=== PATIENT | female | born 1995 | race Caucasian/White ===

== ENCOUNTER 2022-01-06 07:29 | Inpatient (IN) ==
[2022-01-06] MEDS ORDERED: OXYTOCIN 30 UNITS/500 ML BAG IV PRN ×2 (07:46)
[2022-01-06 08:07] LABS: Hematocrit (blood only) 35.4 % (37-47); Hemoglobin 11.6 g/dL (12.0-16.0); Mean Corpuscular Hemoglobin 27.2 pg (25-34); Mean Corpuscular Hgb Conc 32.8 g/dL (32-36); Mean Corpuscular Volume 83.1 fL (80-100); Mean Platelet Volume 9.2 fL (7.4-10.4); Platelet Count 310 K/uL (130-400); RDW Coefficient of Variation 14.8 % (11.5-14.5); RDW Standard Deviation 44.7 fL (36.4-46.3); Red Blood Count 4.26 M/uL (4.2-5.4); White Blood Count 13.77 K/uL (4.8-10.8)
[2022-01-06] MEDS ORDERED: NIFEdipine EXTENDED REL 30 MG TABCR PO SCH (09:00)
[2022-01-06] MEDS: LACTATED RINGER'S 1,000 ML IV PRN ×3 (09:42→22:00)
[2022-01-06 11:02] LABS: Alanine Aminotransferase 10 U/L (7-52); Albumin Level 3.3 gm/dl (3.4-5.0); Alkaline Phosphatase 67 U/L (34-104); Anion Gap 10 (3-11); Aspartate Aminotransferase 12 U/L (13-39); Bilirubin,Total 0.5 mg/dl (0.2-1.0); Blood Urea Nitrogen 11 mg/dl (6-23); Carbon Dioxide 20 mmol/L (21-32); Chloride 105 mmol/L (98-107); Creatinine Clr Calc Pharmacy 284.6 ml/min; Est GFR (African American) > 150.0 ml/min; Est GFR (Non-African American) 138.3 ml/min; Globulin 3.3 gm/dl (2.5-4.0); Glucose 78 mg/dl (70-99(Fasting)); Potassium 4.1 mmol/L (3.5-5.1); Sodium 135 mmol/L (136-145); Total Protein 6.6 gm/dl (6.0-8.3)
[2022-01-06 11:16] LABS: Creatinine Urine Random 252.2 mg/dl; Protein Creatinine Ratio Urine 0.2 (0-0.2); Total Protein Urine Random 57.3 mg/dl (0-11.9)
--- NOTE | 2022-01-06 13:20 | Labor Progress Brief Note ---
Date of Service January 06, 2022 Subjective pt feels some contractions but since the chamorro fell out felt better as far as cramps. denies marcum, visual change. Assessment & Plan (1) Chronic hypertension affecting : (2) Insulin controlled gestational diabetes mellitus (GDM) during : (3) resulting from in-vitro fertilization: Plan: will see how arom helps labor pattern, c/w pit. fhts categ 1. last bp with cuff malpositioned. now improved to her baseline 150s/70s. Admission and Anticipated Discharge Date Admission Date: January 06, 2022 Physical Exam Constitutional: recent bp elevated. Genitourinary: Manual OB Exam: + cervical dilation 3 cm, + cervical effacement 50%, + station -2 and + amniotic fluid (AROM ) clear OB Exam Monitor Tracing: + external FHT monitor used, + external uterine monitor used (q4 ), + category I and + normal FHT variability Results & Data ([facility]) Vital Signs (Past 12 Hours) Vital Signs Temp Pulse Resp BP 01/06/22 13:15 101 H 176/114 H 01/06/22 13:00 82 173/105 H 01/06/22 12:45 107 H 154/105 H 01/06/22 12:30 92 H 139/76 01/06/22 12:00 92 H 158/77 H 01/06/22 11:45 100 H 143/67 H 01/06/22 11:30 90 150/61 H 01/06/22 11:15 91 H 155/71 H 01/06/22 11:00 102 H 154/76 H 01/06/22 10:45 94 H 147/76 H 01/06/22 10:30 92 H 137/75 01/06/22 10:15 91 H 168/75 H 01/06/22 10:00 101 H 167/99 H 01/06/22 09:44 95 H 163/93 H 01/06/22 08:00 103 H 150/85 H 01/06/22 07:51 98.4 F 103 H 18 150/85 H Coding Level of Care Code None Diagnoses Chronic hypertension affecting O10.919 Insulin controlled gestational diabetes mellitus (GDM) during O24.414 resulting from in-vitro fertilization O09.819
[2022-01-06] MEDS ORDERED: BUTORPHANOL TARTRATE 1 MG/ML VIAL IV STA (15:07)
[2022-01-06] MEDS ORDERED: BUTORPHANOL TARTRATE 1 MG/ML VIAL IV PRN (17:52)
--- NOTE | 2022-01-06 18:34 | Labor Progress Brief Note ---
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 Cat 1 tracing. BGS normal (2) Insulin controlled gestational diabetes mellitus (GDM) during : (3) Supervision of normal intrauterine in primigravida: Admission and Anticipated Discharge Date Admission Date: January 06, 2022 Physical Exam Genitourinary: Manual OB Exam: + cervical dilation 3 cm, + cervical effacement 50%, + station -2 and + amniotic fluid clear OB Exam Monitor Tracing: + exte rnal FHT monitor used, + external uterine monitor used, + category I and + normal FHT variability; no early decelerations present, no late decelerations present and no variable decelerations IUPC and FSE placed Results & Data ([facility]) Vital Signs (Past 12 Hours) Vital Signs Temp Pulse Resp BP 01/06/22 17:56 36.7 C 01/06/22 16:37 73 134/62 01/06/22 15:37 75 134/79 01/06/22 15:00 36.7 C 01/06/22 14:38 71 144/79 H 01/06/22 13:30 90 164/79 H 01/06/22 13:17 94 H 158/74 H 01/06/22 13:15 101 H 176/114 H 01/06/22 13:00 36.8 C 82 173/105 H 01/06/22 12:45 107 H 154/105 H 01/06/22 12:30 92 H 139/76 01/06/22 12:00 36.8 C 92 H 158/77 H 01/06/22 11:45 100 H 143/67 H 01/06/22 11:30 90 150/61 H 01/06/22 11:15 91 H 155/71 H 01/06/22 11:00 102 H 154/76 H 01/06/22 10:45 94 H 147/76 H 01/06/22 10:30 92 H 137/75 01/06/22 10:15 91 H 168/75 H 01/06/22 10:00 101 H 167/99 H 01/06/22 09:44 95 H 163/93 H 01/06/22 08:00 103 H 150/85 H 01/06/22 07:51 36.9 C 103 H 18 150/85 H Coding Level of Care Code None Diagnoses Chronic hypertension affecting O10.919 Insulin controlled gestational diabetes mellitus (GDM) during O24.414 Supervision of normal intrauterine in primigravida Z34.00
--- NOTE | 2022-01-06 19:00 | History & Physical Report ---
Date of Service January 06, 2022 Assessment & Plan (1) Chronic hypertension affecting : Plan: kinza is a 26-year-old who presents for induction of labor for chronic hypertension and noted complications. 1. Fetus: Reactive NST 2. Labor: Cruz cath placed, Pitocin per protocol 3. Vital: Elevated without symptoms. PIH labs pending 4. cHTN: Continue home meds 5. A2gDM: Q1-2 hr BG, Last growth US showed EFW 73%, AC 63% (2) Insulin controlled gestational diabetes mellitus (GDM) during : (3) Morbid obesity: (4) resulting from in-vitro fertilization: Admission and Anticipated Discharge Date Admission Date: January 06, 2022 History of Present Illness Primary Care Provider: Anatoliy Bhat MD kinza is a 26-year-old G1 at 38 weeks 2 days gestational age presents for induction of labor secondary to chronic hypertension, insulin-dependent gestati onal diabetes, obesity with BMI greater than 40, marginal cord insertion, mild polyhydramnios and IVF . Please see OB office visits for additional details. Patient is reporting good movement denying any labor symptoms. OB Labs: OB Labs: Blood Type A Positive 06/24/21 Antibody Screen NEGATIVE 06/24/21 Hemoglobin 11.6 g/dL (12.0-16.0) L 11/05/21 Hematocrit 36.0 % (37-47) L 11/05/21 Mean Corpuscular Volume 82.1 fL (80-100) 06/24/21 Platelet Count 379 K/uL (130-400) 10/03/21 Rubella IgG Antibody Non Immune (Immune) L 06/24/21 Rapid Plasma Reagin Nonreactive (Nonreactive) 06/24/21 Hepatitis B Surface Antigen Neg (Neg) 06/24/21 HIV (1&2) Ab and P24 Ag, 4th Gener Neg (Neg) 06/24/21 Glucose 1 Hour 50 gm Load 146 mg/dl (70-130) H 07/29/21 OB Optional Labs: Chlamydia trachomatis RNA NOT DETECTED (NOT DETECTED) 06/24/21 Neisseria gonorrhoeae RNA NOT DETECTED (NOT DETECTED) 06/24/21 Thyroid Stimulating Hormone (TSH) 1.110 uIu/ml (0.300-4.500) 04/18/21 Labs Reviewed: low risk panorama carrier CF--fob neg neg sma declined afp Allergies Allergy/AdvReac Type Severity Reaction Status Date / Time No Known Allergies Allergy Verified 01/02/22 09:56 Home Medications Medication Instructions Recorded Confirmed Type cetirizine 10 mg tablet (Zyrtec) 10 mg PO DAILY 05/27/19 01/06/22 History montelukast 10 mg tablet 10 mg PO QPM 05/27/19 01/06/22 History (Singulair) nifedipine 30 mg tablet,extended 30 mg PO DAILY 06/18/21 01/06/22 History release 24 hr (Procardia XL) aspirin 81 mg tablet,delayed 81 mg PO DAILY 07/17/21 01/06/22 History release (Adult Low Dose Aspirin) acetone (urine) test (Ketone Urine #50 ea 08/14/21 01/02/22 Rx Test) blood sugar diagnostic (ShopTextTouch #150 ea 08/14/21 01/02/22 Rx Verio test strips) blood-glucose meter (ShopTextTouch #1 ea 08/14/21 01/02/22 Rx Verio Flex meter) lancets 33 gauge (OneTouch Delica #150 ea 08/14/21 01/02/22 Rx Plus Lancet) insulin syringe-needle U-100 0.5 #50 ea 12/05/21 01/02/22 Rx mL 31 gauge x 5/16" (BD Insulin Syringe Ultra-Fine) insulin NPH isoph U-100 human 100 50 unit SUBCUT QPM 12/23/21 01/06/22 History unit/mL subcutaneous suspension (Novolin N NPH U-100 Insulin isophane) albuterol sulfate 90 mcg/actuation INHALATION PRN 01/02/22 History aerosol inhaler prenat.vits,son,[id number] 1 tab PO DAILY 01/02/22 01/06/22 History Patient History Medical History (Updated 01/06/22 @ 13:18 by Heike Saenz MD, FACOG) Chronic hypertension affecting Hypertension Insulin controlled gestational diabetes mellitus (GDM) during Morbid obesity Pelvic pain Primary ovarian insufficiency Surgical History H/O sinus surgery History of laparoscopy S/P cholecystectomy [place] teeth extracted Family History Grandfather (Paternal) Prostate cancer Other Asthma Cancer Diabetes Heart disease Hypertension Denies family history of Ovarian cancer Breast cancer Colorectal cancer Social History Smoking Status: Never smoker Second Hand Exposure: No; Do You Dip or Chew Tobacco: No; Hx Alcohol Use: No Hx Substance Use: No Preferred Language: Yemeni Communication Ability: Effective Knife Setter Grinder Machine Required: No Beliefs That Will Affect Care: Orthodox marital status: marital status details: akira (26) [phone] Current Living Situation: Spouse Current Living Situation Comment: lives with spouse, 1 dog, 1 cat, spouse to change litter. 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 @ [employer] Feels Safe at Home: Yes Safety Concerns: Feels Safe At This Time Physical Exam Genitourinary: normal external appearance Manual OB Exam: + cervical dilation fingertip, + cervical effacement 10% and + station high OB Exam Monitor Tracing: + external FHT monitor used, + external uterine monitor used, + category I and + normal FHT variability; no early decelerations present, no late decelerations present and no variable decelerations Results & Data ([facility]) Vital Signs (Past 12 Hours) Vital Signs Temp Pulse Resp BP 01/06/22 18:38 72 130/69 01/06/22 17:56 36.7 C 01/06/22 16:37 73 134/62 01/06/22 15:37 75 134/79 01/06/22 15:00 36.7 C 01/06/22 14:38 71 144/79 H 01/06/22 13:30 90 164/79 H 01/06/22 13:17 94 H 158/74 H 01/06/22 13:15 101 H 176/114 H 01/06/22 13:00 36.8 C 82 173/105 H 01/06/22 12:45 107 H 154/105 H 01/06/22 12:30 92 H 139/76 01/06/22 12:00 36.8 C 92 H 158/77 H 01/06/22 11:45 100 H 143/67 H 01/06/22 11:30 90 150/61 H 01/06/22 11:15 91 H 155/71 H 01/06/22 11:00 102 H 154/76 H 01/06/22 10:45 94 H 147/76 H 01/06/22 10:30 92 H 137/75 01/06/22 10:15 91 H 168/75 H 01/06/22 10:00 101 H 167/99 H 01/06/22 09:44 95 H 163/93 H 01/06/22 08:00 103 H 150/85 H 01/06/22 07:51 36.9 C 103 H 18 150/85 H Coding Level of Care Code None Diagnoses Chronic hypertension affecting O10.919 Insulin controlled gestational diabetes mellitus (GDM) during O24.414 Morbid obesity E66.01 resulting from in-vitro fertilization O09.819
[2022-01-06] MEDS ORDERED: ePHEDrine sulfate 50 MG/ML AMP ONE (19:31)
[2022-01-06] MEDS ORDERED: BUPIVACAINE 0.25% 30 ML VIAL ONE (19:32)
[2022-01-06] MEDS ORDERED: fentaNYL citrate 100 MCG/2 ML VIAL ONE (19:32)
[2022-01-06] MEDS ORDERED: SODIUM CHLORIDE 0.9% INJ 10 ML VIAL ONE (19:32)
[2022-01-06] MEDS ORDERED: fentaNYL 2MCG/ML ROPIVACAINE 1.25MG/ML 100 ML BAG EPI ONE (19:33)
[2022-01-06] MEDS ORDERED: ePHEDrine sulfate 50 MG/ML AMP IV PRN (19:48)
[2022-01-06] MEDS ORDERED: ONDANSETRON INJ 2 MG/ML 2 ML VIAL IV PRN (19:48)
[2022-01-06] MEDS ORDERED: fentaNYL 2MCG/ML ROPIVACAINE 1.25MG/ML 100 ML BAG EPI PRN (19:48)
[2022-01-06] MEDS ORDERED: NALBUPHINE HCL INJ 10 MG/ML AMP IV PRN (19:48)
[2022-01-06] MEDS ORDERED: NALOXONE HCL 0.4 MG/1 ML VIAL/CARP IV PRN (19:48)
[2022-01-06] MEDS ORDERED: NALOXONE HCL 1 MG in SODIUM CHLORIDE 0.9% 1000ML 1,000 ML IV PRN (19:48)
[2022-01-06] MEDS ORDERED: diphenhydrAMINE 50 MG/ML VIAL IV PRN (19:48)
--- NOTE | 2022-01-06 19:53 | Anesthesiology Consultation ---
Date of Service January 06, 2022 Assessment & Plan Chart Review Chart Review: Patient NOT seen in Pre Admission Testing and Acceptable Risk for Labor Epidural Consults Requested none ASA ASA3 Proposed Anesthesia Anesthesia Type: Labor Epidural and CSE Risk / Benefits Reviewed With: PT / POA / Parent / Guardian, Accepts Plan and Informed Consent Obtained History Height/Weight Height: 5 ft 8 in Weight: 138.799 kg Allergies Allergy/AdvReac Type Severity Reaction Status Date / Time No Known Allergies Allergy Verified 01/02/22 09:56 Medications Home Medications Medication Instructions Recorded Confirmed Last Taken cetirizine 10 mg tablet (Zyrtec) 10 mg PO DAILY 05/27/19 01/06/22 01/06/22 06:00 montelukast 10 mg tablet 10 mg PO QPM 05/27/19 01/06/22 01/06/22 06:00 (Singulair) nifedipine 30 mg tablet,extended 30 mg PO DAILY 06/18/21 01/06/22 01/05/22 22:00 release 24 hr (Procardia XL) aspirin 81 mg tablet,delayed 81 mg PO DAILY 07/17/21 01/06/22 01/06/22 06:00 release (Adult Low Dose Aspirin) acetone (urine) test (Ketone Urine #50 ea 08/14/21 01/02/22 Unknown Test) blood sugar diagnostic (OneTouch #150 ea 08/14/21 01/02/22 Unknown Verio test strips) blood-glucose meter (OneTouch #1 ea 08/14/21 01/02/22 Unknown Verio Flex meter) lancets 33 gauge (OneTouch Delica #150 ea 08/14/21 01/02/22 Unknown Plus Lancet) insulin syringe-needle U-100 0.5 #50 ea 12/05/21 01/02/22 Unknown mL 31 gauge x 5/16" (BD Insulin Syringe Ultra-Fine) insulin NPH isoph U-100 human 100 50 unit SUBCUT QPM 12/23/21 01/06/22 01/05/22 23:00 unit/mL subcutaneous suspension (Novolin N NPH U-100 Insulin isophane) albuterol sulfate 90 mcg/actuation INHALATION PRN 01/02/22 Unknown aerosol inhaler prenat.vits,son,[id number] 1 tab PO DAILY 01/02/22 01/06/22 01/06/22 06:00 Active Medications Generic Name Dose Route Start Last Admin Trade Name Freq PRN Reason Stop Dose Admin Butorphanol Tartrate 1 mg 01/06/22 17:52 01/06/22 18:02 Butorphanol Tartrate 1 Mg/Ml Vial IV 02/05/22 17:51 1 mg Q2H PRN Administration Pain Oxytocin 30 units in 500 mls @ 14 mls/hr 01/06/22 07:46 01/06/22 15:31 Pitocin IV 01/08/22 07:45 0.84 units/hr .Q24H PRN 14 mls/hr Labor Induction/Augmentation Titration Protocol 0.84 UNITS/HR Lactated Ringer's 1,000 mls @ 125 mls/hr 01/06/22 07:46 01/06/22 17:57 Lr IV 01/08/22 07:45 125 mls/hr .Q8H PRN Administration L&D Protocol Protocol NPO Date Last Intake of Fluids: 01/06/22 Time Last Intake of Fluids: 19:00 Date Last Intake of Solids: 01/06/22 Time Last Intake of Solids: 06:30 Past Medical History Medical History Chronic hypertension affecting Hypertension Insulin controlled gestational diabetes mellitus (GDM) during Morbid obesity Pelvic pain Primary ovarian insufficiency Exercise / Class Metabolic Activity II 4-5 Yardwork/Stairs/Walk up hill Past Family History Family History Grandfather (Paternal) Prostate cancer Other Asthma Cancer Diabetes Heart disease Hypertension Denies family history of Ovarian cancer Breast cancer Colorectal cancer Past Surgical History Surgical History H/O sinus surgery History of laparoscopy S/P cholecystectomy [place] teeth extracted Past Anesthesia History No Hx of Anesthesia Complications and No Family Hx of Anesthesia Complications Social History Smoking Status: Never smoker Do You Dip or Chew Tobacco: No Hx Alcohol Use: No Hx Substance Use: No Review of Systems no chest pain or sob Physical Exam Vital Signs Last Vital Signs Temp 36.7 C 01/06/22 19:14 Pulse 90 01/06/22 19:37 Resp 18 01/06/22 19:14 BP 183/103 H 01/06/22 19:37 ENMT Mouth: no TMJ abnormality Thyromental Distance: > or= 3.5 Finger Breadths Mallampati Class: II Neck normal visual inspection Respiratory normal respiratory effort Auscultation: lungs clear to auscultation bilaterally Cardiovascular Rate/Rhythm: regular rate and regular rhythm Musculoskeletal Spine: normal cervical ROM Neurologic moves all extremities Psychiatric Orientation: alert and oriented x 3 Testing Laboratory Results 01/06/22 07:54 01/06/22 10:16 Blood Type A Positive 01/06/22 07:54 Antibody Screen NEGATIVE 01/06/22 07:54 01/06/22 01/06/22 01/06/22 19:31 18:33 16:32 POC Glucose 79 93 77 01/06/22 01/06/22 01/06/22 15:29 14:01 13:13 POC Glucose 82 73 81 01/06/22 01/06/22 01/06/22 12:02 11:04 10:10 POC Glucose 86 83 88 01/06/22 08:57 POC Glucose 108 H
[2022-01-06] MEDS: NIFEdipine EXTENDED REL 30 MG TABCR PO SCH ×2 (20:44→20:45)
--- NOTE | 2022-01-06 22:15 | Labor Progress Brief Note ---
Date of Service January 06, 2022 Subjective Reason For Note: Routine Evaluation Assessment & Plan (1) Chronic hypertension affecting : Plan: kinza is a 26-year-old who presents for induction of labor for chronic hypertension and noted complications. 1. Fetus: Cat 1 2. Labor: Minimal progression. Adequate contractions per IUPC. s/p Cruz cath, Pitocin per protocol 3. Vital: BPs elevated. denies PIH symptoms. PIH labs normal 4. cHTN: Continue home meds 5. A2gDM: Q1-2 hr BG, Last growth US showed EFW 73%, AC 63% (2) Insulin controlled gestational diabetes mellitus (GDM) during : (3) Morbid obesity: (4) resulting from in-vitro fertilization: Admission and Anticipated Discharge Date Admission Date: January 06, 2022 Physical Exam Genitourinary: Manual OB Exam: + cervical dilation 4 cm, + cervical effacement 50% and + station -2 OB Exam Monitor Tracing: + external FHT monitor used, + external uterine monitor used, + category I and + normal FHT variability Results & Data ([facility]) Vital Signs (Past 12 Hours) Vital Signs Temp Pulse Resp BP Pulse Ox 01/06/22 22:06 96 H 98 01/06/22 22:01 88 96 01/06/22 21:56 80 97 01/06/22 21:51 80 96 01/06/22 21:46 84 97 01/06/22 21:44 81 116/59 L 01/06/22 21:41 81 97 01/06/22 21:36 95 H 97 01/06/22 21:31 74 97 01/06/22 21:30 90 120/72 01/06/22 21:26 84 97 01/06/22 21:21 77 97 01/06/22 21:16 83 98 01/06/22 21:15 78 120/59 L 01/06/22 21:11 82 98 01/06/22 21:06 79 98 01/06/22 21:01 75 98 01/06/22 21:00 81 126/58 L 01/06/22 20:56 79 98 01/06/22 20:53 36.7 C 01/06/22 20:51 82 97 01/06/22 20:46 78 97 01/06/22 20:45 96 H 110/55 L 01/06/22 20:41 84 96 01/06/22 20:36 81 95 01/06/22 20:35 83 93 01/06/22 20:31 82 95 01/06/22 20:29 85 105/52 L 01/06/22 20:26 71 95 01/06/22 20:24 82 93 01/06/22 20:21 97 H 96 01/06/22 20:16 117 H 97 01/06/22 20:13 117 H 138/60 01/06/22 20:11 113 H 146/76 H 97 01/06/22 20:09 110 H 144/77 H 01/06/22 20:07 110 H 142/87 H 01/06/22 20:06 121 H 98 01/06/22 20:01 102 H 98 01/06/22 19:56 86 98 01/06/22 19:51 91 H 96 01/06/22 19:37 90 183/103 H 01/06/22 19:14 36.7 C 18 01/06/22 19:05 86 167/93 H 01/06/22 18:38 72 130/69 01/06/22 17:56 36.7 C 01/06/22 16:37 73 134/62 01/06/22 15:37 75 134/79 01/06/22 15:00 36.7 C 01/06/22 14:38 71 144/79 H 01/06/22 13:30 90 164/79 H 01/06/22 13:17 94 H 158/74 H 01/06/22 13:15 101 H 176/114 H 01/06/22 13:00 36.8 C 82 173/105 H 01/06/22 12:45 107 H 154/105 H 01/06/22 12:30 92 H 139/76 01/06/22 12:00 36.8 C 92 H 158/77 H 01/06/22 11:45 100 H 143/67 H 01/06/22 11:30 90 150/61 H 01/06/22 11:15 91 H 155/71 H 01/06/22 11:00 102 H 154/76 H 01/06/22 10:45 94 H 147/76 H 01/06/22 10:30 92 H 137/75 01/06/22 10:15 91 H 168/75 H Coding Level of Care Code None Diagnoses Chronic hypertension affecting O10.919 Insulin controlled gestational diabetes mellitus (GDM) during O24.414 Morbid obesity E66.01 resulting from in-vitro fertilization O09.819
--- NOTE | 2022-01-07 02:08 | Labor Progress Brief Note ---
Date of Service January 07, 2022 Subjective Reason For Note: Routine Evaluation Assessment & Plan (1) Chronic hypertension affecting : Plan: kinza is a 26-year-old who presents for induction of labor for chronic hypertension and noted complications. 1. Fetus: Cat 1 2. Labor: Definite increased effacement and lower station. Adequate contractions per IUPC. s/p Cruz cath, Pitocin per protocol 3. Vital: BPs elevated. denies PIH symptoms. PIH labs normal 4. cHTN: Continue home meds 5. A2gDM: Normal BG, Last growth US showed EFW 73%, AC 63% (2) Insulin controlled gestational diabetes mellitus (GDM) during : (3) Morbid obesity: (4) resulting from in-vitro fertilization: Admission and Anticipated Discharge Date Admission Date: January 06, 2022 Physical Exam Genitourinary: Manual OB Exam: + cervical dilation 4 cm, + cervical effacement 70% and + station -1 OB Exam Monitor Tracing: + scalp electrode used, + intra-uterine pressure catheter used, + category I and + normal FHT variability; no variable decelerations Results & Data ([facility]) Vital Signs (Past 12 Hours) Vital Signs Temp Pulse Resp BP Pulse Ox 01/07/22 02:01 113 H 96 01/07/22 02:00 123 H 137/78 01/07/22 01:56 88 94 01/07/22 01:54 86 94 01/07/22 01:51 87 95 01/07/22 01:48 88 94 01/07/22 01:46 90 95 01/07/22 01:45 91 H 125/59 L 01/07/22 01:41 88 95 01/07/22 01:36 82 94 01/07/22 01:31 98 H 95 01/07/22 01:30 94 H 141/79 H 01/07/22 01:27 91 H 94 01/07/22 01:26 90 95 01/07/22 01:21 82 95 01/07/22 01:20 89 94 01/07/22 01:16 83 95 01/07/22 01:14 93 H 139/82 94 01/07/22 01:11 90 95 01/07/22 01:09 89 94 01/07/22 01:06 94 H 94 01/07/22 01:04 96 H 94 01/07/22 01:01 96 H 94 01/07/22 00:59 93 H 139/77 01/07/22 00:58 95 H 94 01/07/22 00:56 88 95 01/07/22 00:53 95 H 94 01/07/22 00:51 93 H 95 01/07/22 00:46 102 H 95 01/07/22 00:44 98 H 157/81 H 01/07/22 00:41 104 H 95 01/07/22 00:39 101 H 93 01/07/22 00:36 105 H 95 01/07/22 00:32 37.3 C 16 01/07/22 00:31 94 H 96 01/07/22 00:30 91 H 144/83 H 01/07/22 00:29 94 H 93 01/07/22 00:26 86 94 01/07/22 00:21 89 94 01/07/22 00:20 88 94 01/07/22 00:16 86 94 01/07/22 00:14 91 H 141/82 H 94 01/07/22 00:11 82 94 01/07/22 00:06 88 94 01/07/22 00:01 88 94 01/06/22 23:59 91 H 139/84 01/06/22 23:56 89 94 01/06/22 23:51 80 95 01/06/22 23:46 84 95 01/06/22 23:45 91 H 140/86 93 01/06/22 23:41 85 95 01/06/22 23:39 86 94 01/06/22 23:36 94 H 96 01/06/22 23:33 18 01/06/22 23:32 88 94 01/06/22 23:31 84 95 01/06/22 23:28 85 124/64 01/06/22 23:26 84 94 01/06/22 23:21 81 96 01/06/22 23:16 79 95 01/06/22 23:14 79 128/65 01/06/22 23:11 82 95 01/06/22 23:10 85 94 01/06/22 23:06 84 95 01/06/22 23:01 75 95 01/06/22 22:59 77 126/58 L 01/06/22 22:56 81 97 01/06/22 22:51 79 96 0418/22 22:50 83 93 01/06/22 22:46 82 96 01/06/22 22:43 79 123/64 01/06/22 22:41 77 97 01/06/22 22:39 84 94 01/06/22 22:36 83 95 01/06/22 22:31 85 98 01/06/22 22:30 82 119/60 01/06/22 22:26 82 97 01/06/22 22:21 86 97 01/06/22 22:20 37.0 C 18 01/06/22 22:16 84 97 01/06/22 22:15 89 137/79 94 01/06/22 22:11 99 H 98 01/06/22 22:06 96 H 98 01/06/22 22:01 88 96 01/06/22 21:56 80 97 01/06/22 21:51 80 96 01/06/22 21:46 84 97 01/06/22 21:44 81 116/59 L 01/06/22 21:41 81 97 01/06/22 21:36 95 H 97 01/06/22 21:31 74 97 01/06/22 21:30 90 120/72 01/06/22 21:26 84 97 01/06/22 21:21 77 97 01/06/22 21:16 83 98 01/06/22 21:15 78 120/59 L 01/06/22 21:11 82 98 01/06/22 21:06 79 98 01/06/22 21:01 75 98 01/06/22 21:00 81 126/58 L 01/06/22 20:56 79 98 01/06/22 20:53 36.7 C 01/06/22 20:51 82 97 01/06/22 20:46 78 97 01/06/22 20:45 96 H 110/55 L 01/06/22 20:41 84 96 01/06/22 20:36 81 95 01/06/22 20:35 83 93 01/06/22 20:31 82 95 01/06/22 20:29 85 105/52 L 01/06/22 20:26 71 95 01/06/22 20:24 82 93 01/06/22 20:21 97 H 96 01/06/22 20:16 117 H 97 01/06/22 20:13 117 H 138/60 01/06/22 20:11 113 H 146/76 H 97 01/06/22 20:09 110 H 144/77 H 01/06/22 20:07 110 H 142/87 H 01/06/22 20:06 121 H 98 01/06/22 20:01 102 H 98 01/06/22 19:56 86 98 01/06/22 19:51 91 H 96 01/06/22 19:37 90 183/103 H 01/06/22 19:14 36.7 C 18 01/06/22 19:05 86 167/93 H 01/06/22 18:38 72 130/69 01/06/22 17:56 36.7 C 01/06/22 16:37 73 134/62 01/06/22 15:37 75 134/79 01/06/22 15:00 36.7 C 01/06/22 14:38 71 144/79 H Coding Level of Care Code None Diagnoses Chronic hypertension affecting O10.919 Insulin controlled gestational diabetes mellitus (GDM) during O24.414 Morbid obesity E66.01 resulting from in-vitro fertilization O09.819
[2022-01-07] MEDS: LACTATED RINGER'S 1,000 ML IV PRN (05:17)
[2022-01-07] MEDS ORDERED: CITRIC ACID/SODIUM CITRATE 15 ML UDC PO SCH (06:00)
--- NOTE | 2022-01-07 06:55 | Labor Progress Brief Note ---
Date of Service January 07, 2022 Subjective Reason For Note: Routine Evaluation Assessment & Plan (1) Chronic hypertension affecting : Plan: kinza is a 26-year-old who presents for induction of labor for chronic hypertension and noted complications. 1. Fetus: Cat 1 2. Labor:No change. Adequate contractions per [facility]PC for >10-12 hours. Discussed delivery options including continuing labor versus section for failure to progress. Discussed that she has been adequate contractions for over 12 hours with minimal progression. Risks and benefits of both options reviewed patient would like to proceed with a section. Procedure review in detail and questions answered. consents reviewed and signed. 3. Vital: BPs elevated. denies PIH symptoms. PIH labs normal 4. cHTN: Continue home meds 5. A2gDM: Normal BG, Last growth US showed EFW 73%, AC 63% (2) Insulin controlled gestational diabetes mellitus (GDM) during : (3) Morbid obesity: (4) resulting from in-vitro fertilization: Admission and Anticipated Discharge Date Admission Date: January 06, 2022 Physical Exam Genitourinary: Manual OB Exam: + cervical dilation 4 cm, + cervical effacement 70% and + station -1 OB Exam Monitor Tracing: + external FHT monitor used, + external uterine monitor used, + category I and + normal FHT variability Results & Data ([facility] [place]) Vital Signs (Past 12 Hours) Vital Signs Temp Pulse Resp BP Pulse Ox 01/07/22 06:51 142 H 01/07/22 06:46 114 H 97 01/07/22 06:44 114 H 163/100 H 01/07/22 06:41 110 H 97 01/07/22 06:36 113 H 95 01/07/22 06:31 116 H 96 01/07/22 06:29 109 H 148/90 H 01/07/22 06:26 106 H 95 01/07/22 06:21 106 H 97 01/07/22 06:16 109 H 95 01/07/22 06:15 103 H 133/66 01/07/22 06:11 123 H 96 01/07/22 06:06 111 H 96 01/07/22 06:02 37.0 C 18 01/07/22 06:01 116 H 96 01/07/22 06:00 114 H 144/82 H 94 01/07/22 05:56 107 H 95 01/07/22 05:51 101 H 95 01/07/22 05:49 101 H 94 01/07/22 05:46 99 H 95 01/07/22 05:45 100 H 128/58 L 01/07/22 05:43 103 H 93 01/07/22 05:41 94 H 95 01/07/22 05:38 101 H 94 01/07/22 05:36 96 H 95 01/07/22 05:32 104 H 94 01/07/22 05:31 98 H 95 01/07/22 05:29 103 H 129/61 01/07/22 05:26 106 H 95 01/07/22 05:21 107 H 96 01/07/22 05:16 108 H 96 01/07/22 05:15 97 H 130/63 01/07/22 05:11 93 H 95 01/07/22 05:06 95 H 95 01/07/22 05:01 92 H 95 01/07/22 04:59 93 H 124/61 01/07/22 04:56 89 95 01/07/22 04:51 90 95 01/07/22 04:46 93 H 96 01/07/22 04:44 101 H 144/81 H 94 01/07/22 04:41 99 H 94 01/07/22 04:38 99 H 94 01/07/22 04:36 101 H 95 01/07/22 04:31 100 H 95 01/07/22 04:29 106 H 144/85 H 94 01/07/22 04:26 100 H 94 01/07/22 04:23 98 H 94 01/07/22 04:21 101 H 95 01/07/22 04:18 105 H 94 01/07/22 04:16 100 H 95 01/07/22 04:14 107 H 152/78 H 01/07/22 04:12 103 H 94 01/07/22 04:11 102 H 95 01/07/22 04:06 92 H 95 01/07/22 04:01 98 H 18 94 01/07/22 04:00 96 H 94 01/07/22 03:58 99 H 126/57 L 01/07/22 03:56 94 H 94 01/07/22 03:55 94 H 94 01/07/22 03:51 95 H 94 01/07/22 03:46 95 H 94 01/07/22 03:44 101 H 132/58 L 01/07/22 03:42 92 H 94 01/07/22 03:41 92 H 94 01/07/22 03:36 91 H 93 01/07/22 03:31 101 H 93 01/07/22 03:29 36.6 C 102 H 18 94 01/07/22 03:28 122 H 122/58 L 01/07/22 03:26 103 H 93 01/07/22 03:23 97 H 94 01/07/22 03:21 92 H 93 01/07/22 03:16 90 93 01/07/22 03:14 90 123/58 L 01/07/22 03:11 93 H 93 01/07/22 03:06 87 93 01/07/22 03:01 89 94 01/07/22 02:59 89 120/56 L 01/07/22 02:56 92 H 94 01/07/22 02:51 88 94 01/07/22 02:50 91 H 94 01/07/22 02:46 90 94 01/07/22 02:45 89 117/55 L 01/07/22 02:44 92 H 94 01/07/22 02:41 93 H 95 01/07/22 02:38 96 H 94 01/07/22 02:36 92 H 95 01/07/22 02:32 92 H 94 01/07/22 02:31 88 95 01/07/22 02:29 96 H 122/59 L 01/07/22 02:27 91 H 94 01/07/22 02:26 91 H 95 01/07/22 02:21 107 H 97 01/07/22 02:16 103 H 97 01/07/22 02:14 110 H 143/87 H 01/07/22 02:11 108 H 97 01/07/22 02:06 108 H 96 01/07/22 02:01 37.0 C 113 H 16 96 01/07/22 02:00 123 H 137/78 01/07/22 01:56 88 94 01/07/22 01:54 86 94 01/07/22 01:51 87 95 01/07/22 01:48 88 94 01/07/22 01:46 90 95 01/07/22 01:45 91 H 125/59 L 01/07/22 01:41 88 95 01/07/22 01:36 82 94 01/07/22 01:31 98 H 95 01/07/22 01:30 94 H 141/79 H 01/07/22 01:27 91 H 94 01/07/22 01:26 90 95 01/07/22 01:21 82 95 01/07/22 01:20 89 94 01/07/22 01:16 83 95 01/07/22 01:14 93 H 139/82 94 01/07/22 01:11 90 95 01/07/22 01:09 89 94 01/07/22 01:06 94 H 94 01/07/22 01:04 96 H 94 01/07/22 01:01 96 H 94 01/07/22 00:59 93 H 139/77 01/07/22 00:58 95 H 94 01/07/22 00:56 88 95 01/07/22 00:53 95 H 94 01/07/22 00:51 93 H 95 01/07/22 00:46 102 H 95 01/07/22 00:44 98 H 157/81 H 01/07/22 00:41 104 H 95 01/07/22 00:39 101 H 93 01/07/22 00:36 105 H 95 01/07/22 00:32 37.3 C 16 01/07/22 00:31 94 H 96 01/07/22 00:30 91 H 144/83 H 01/07/22 00:29 94 H 93 01/07/22 00:26 86 94 01/07/22 00:21 89 94 01/07/22 00:20 88 94 01/07/22 00:16 86 94 01/07/22 00:14 91 H 141/82 H 94 01/07/22 00:11 82 94 01/07/22 00:06 88 94 01/07/22 00:01 88 94 01/06/22 23:59 91 H 139/84 01/06/22 23:56 89 94 01/06/22 23:51 80 95 01/06/22 23:46 84 95 01/06/22 23:45 91 H 140/86 93 01/06/22 23:41 85 95 01/06/22 23:39 86 94 01/06/22 23:36 94 H 96 01/06/22 23:33 18 01/06/22 23:32 88 94 01/06/22 23:31 84 95 01/06/22 23:28 85 124/64 01/06/22 23:26 84 94 01/06/22 23:21 81 96 01/06/22 23:16 79 95 01/06/22 23:14 79 128/65 01/06/22 23:11 82 95 01/06/22 23:10 85 94 01/06/22 23:06 84 95 01/06/22 23:01 75 95 01/06/22 22:59 77 126/58 L 01/06/22 22:56 81 97 01/06/22 22:51 79 96 01/06/22 22:50 83 93 01/06/22 22:46 82 96 01/06/22 22:43 79 123/64 01/06/22 22:41 77 97 01/06/22 22:39 84 94 01/06/22 22:36 83 95 01/06/22 22:31 85 98 01/06/22 22:30 82 119/60 01/06/22 22:26 82 97 01/06/22 22:21 86 97 01/06/22 22:20 37.0 C 18 01/06/22 22:16 84 97 01/06/22 22:15 89 137/79 94 01/06/22 22:11 99 H 98 01/06/22 22:06 96 H 98 01/06/22 22:01 88 96 01/06/22 21:56 80 97 01/06/22 21:51 80 96 01/06/22 21:46 84 97 01/06/22 21:44 81 116/59 L 01/06/22 21:41 81 97 01/06/22 21:36 95 H 97 01/06/22 21:31 74 97 01/06/22 21:30 90 120/72 01/06/22 21:26 84 97 01/06/22 21:21 77 97 01/06/22 21:16 83 98 01/06/22 21:15 78 120/59 L 01/06/22 21:11 82 98 01/06/22 21:06 79 98 01/06/22 21:01 75 98 01/06/22 21:00 81 126/58 L 01/06/22 20:56 79 98 01/06/22 20:53 36.7 C 01/06/22 20:51 82 97 01/06/22 20:46 78 97 01/06/22 20:45 96 H 110/55 L 01/06/22 20:41 84 96 01/06/22 20:36 81 95 01/06/22 20:35 83 93 01/06/22 20:31 82 95 01/06/22 20:29 85 105/52 L 01/06/22 20:26 71 95 01/06/22 20:24 82 93 01/06/22 20:21 97 H 96 01/06/22 20:16 117 H 97 01/06/22 20:13 117 H 138/60 01/06/22 20:11 113 H 146/76 H 97 01/06/22 20:09 110 H 144/77 H 01/06/22 20:07 110 H 142/87 H 01/06/22 20:06 121 H 98 01/06/22 20:01 102 H 98 01/06/22 19:56 86 98 01/06/22 19:51 91 H 96 01/06/22 19:37 90 183/103 H 01/06/22 19:14 36.7 C 18 01/06/22 19:05 86 167/93 H Coding Level of Care Code None Diagnoses Chronic hypertension affecting O10.919 Insulin controlled gestational diabetes mellitus (GDM) during O24.414 Morbid obesity E66.01 resulting from in-vitro fertilization O09.819
[2022-01-07] MEDS ORDERED: ONDANSETRON INJ 2 MG/ML 2 ML VIAL ONE (07:00)
[2022-01-07] MEDS ORDERED: LIDOCAINE 2%/EPINEPHRINE 1:200,000 20 ML SDV ONE (07:00)
[2022-01-07] MEDS ORDERED: PHENYLEPHRINE 100MCG/ML 5ML SYR ONE (07:00)
[2022-01-07] MEDS ORDERED: OXYTOCIN 10 UNITS/ML 10ML VIAL ONE (07:00)
[2022-01-07] MEDS ORDERED: MoRPHine SULFATE PF 1 MG/ML 10 ML AMP/VIAL ONE (08:18)
[2022-01-07] MEDS ORDERED: LACTATED RINGER'S 500 ML IV PRN ×2 (08:28→12:11)
[2022-01-07] MEDS ORDERED: NALBUPHINE HCL INJ 10 MG/ML AMP IV PRN (08:28)
[2022-01-07] MEDS ORDERED: diphenhydrAMINE 50 MG/ML VIAL IV PRN (08:28)
[2022-01-07] MEDS ORDERED: NALOXONE HCL 0.4 MG/1 ML VIAL/CARP IV PRN (08:28)
[2022-01-07] MEDS ORDERED: ONDANSETRON INJ 2 MG/ML 2 ML VIAL IV PRN ×2 (08:28→09:16)
[2022-01-07] MEDS ORDERED: ePHEDrine sulfate 50 MG/ML AMP IV PRN (08:28)
[2022-01-07] MEDS ORDERED: MoRPHine SULFATE PF 1 MG/ML 10 ML AMP/VIAL EPI ONE (08:28)
[2022-01-07] MEDS ORDERED: NALOXONE HCL 1 MG in SODIUM CHLORIDE 0.9% 1000ML 1,000 ML IV PRN (08:28)
[2022-01-07] MEDS ORDERED: NALOXONE HCL 0.08 MG in SYRINGE 1.8 ML IV PRN (08:28)
[2022-01-07] MEDS ORDERED: NO NARCOTICS OR SEDATIVES SCH (08:30)
[2022-01-07] MEDS ORDERED: MIDAZOLAM HCL 1 MG/ML 2ML VIAL ONE (08:30)
[2022-01-07] MEDS ORDERED: SODIUM CHLORIDE 0.9% 1000ML 1,000 ML IV SCH (08:30)
[2022-01-07] MEDS ORDERED: DC INTRASPINAL MORPHINE SCH (08:30)
[2022-01-07] MEDS ORDERED: ARISTA ABSORBABLE HEMOSTAT 3GM TOP ONE (08:36)
[2022-01-07] MEDS ORDERED: AZITHROMYCIN 500 MG in DEXTROSE 5% 250 ML IV ONE (08:45)
[2022-01-07] MEDS ORDERED: DIPHTHERIA/TETANUS/PERTUSSIS 0.5 ML SYR/VIAL IM ONE (09:16)
[2022-01-07] MEDS ORDERED: SENNA 8.6 MG TAB PO PRN (09:16)
[2022-01-07] MEDS ORDERED: BENZOCAINE 20% AER SPR 82.5 GM CAN EXT PRN (09:16)
[2022-01-07] MEDS ORDERED: MAGNESIUM HYDROXIDE SUSP 30 ML UDC PO PRN (09:16)
[2022-01-07] MEDS ORDERED: HYDROCORTISONE ACETATE 25 MG SUPP PR PRN (09:16)
--- NOTE | 2022-01-07 09:20 | Post Operative Brief Note ---
PG Immediate Post Op with CF Date of Surgery January 07, 2022 Pre & Post Diagnosis Operation Date: 01/07/22 07:20 Pre-Op Diagnosis: chronic hypertension. failure to progress. a2GDM Post-Op Diagnosis: same as above I identified the patient and participated in the time-out.: Yes Procedure Operation Date: 01/07/22 07:20 Actual Procedures p Section in LD delivery of life male child @ 0813 - Daniel Barker MD Surgeon Daniel Barker MD Orthopaedic Doctor Dr Foy Estimated Blood Loss 700 Findings Consistent with Post-Op Diagnosis Specimens Specimen Description: placenta hold cord blood Drains Cruz Catheter (inserted during labor. draining concentrated urine.) OB Procedure charges OB Charges 68040
[2022-01-07] MEDS ORDERED: LACTATED RINGER'S 1,000 ML IV SCH (09:30)
[2022-01-07] MEDS: KETOROLAC 30 MG/ML VIAL IV PRN ×3 (09:33→21:54)
--- NOTE | 2022-01-07 10:47 | Anesthesiology Progress Note ---
Date of Service January 07, 2022 Anesthesia Post Procedure Vital Signs Vital Signs: Temp Pulse Resp BP Pulse Ox 01/07/22 10:44 101 H 97 01/07/22 10:42 95 H 154/85 H 01/07/22 10:39 98 H 97 01/07/22 10:34 90 97 01/07/22 10:32 93 H 148/65 H 01/07/22 10:29 96 H 97 01/07/22 10:24 94 H 97 01/07/22 10:22 104 H 165/73 H 01/07/22 10:19 103 H 97 01/07/22 10:16 37.5 C 20 01/07/22 10:14 96 H 97 01/07/22 10:12 100 H 162/93 H 01/07/22 10:09 94 H 97 01/07/22 10:06 20 01/07/22 10:04 100 H 97 01/07/22 10:02 96 H 148/84 H 01/07/22 09:59 97 H 97 01/07/22 09:56 20 01/07/22 09:54 109 H 96 01/07/22 09:52 110 H 146/78 H 01/07/22 09:49 103 H 97 01/07/22 09:46 18 01/07/22 09:44 107 H 98 01/07/22 09:42 103 H 157/98 H 01/07/22 09:39 102 H 100 01/07/22 09:36 22 01/07/22 09:34 102 H 100 01/07/22 09:32 108 H 149/71 H 01/07/22 09:28 103 H 97 01/07/22 09:26 22 01/07/22 09:23 101 H 96 01/07/22 09:19 113 H 136/78 01/07/22 09:18 116 H 98 01/07/22 09:16 37.2 C 20 01/07/22 07:43 127 H 145/69 H 01/07/22 07:41 134 H 95 01/07/22 07:36 130 H 96 01/07/22 07:31 134 H 96 01/07/22 07:30 36.8 C 20 01/07/22 07:29 134 H 149/68 H 01/07/22 07:26 138 H 96 01/07/22 07:21 150 H 96 01/07/22 07:16 144 H 97 01/07/22 07:15 150 H 153/69 H 01/07/22 07:11 153 H 97 01/07/22 07:06 154 H 97 01/07/22 07:01 143 H 97 01/07/22 06:59 151 H 172/130 H 91 01/07/22 06:56 138 H 99 01/07/22 06:51 142 H 98 01/07/22 06:46 114 H 97 01/07/22 06:44 114 H 163/100 H 01/07/22 06:41 110 H 97 01/07/22 06:36 113 H 95 01/07/22 06:31 116 H 96 01/07/22 06:29 109 H 148/90 H 01/07/22 06:26 106 H 95 01/07/22 06:21 106 H 97 01/07/22 06:16 109 H 95 01/07/22 06:15 103 H 133/66 01/07/22 06:11 123 H 96 01/07/22 06:06 111 H 96 01/07/22 06:02 37.0 C 18 01/07/22 06:01 116 H 96 01/07/22 06:00 114 H 144/82 H 94 01/07/22 05:56 107 H 95 01/07/22 05:51 101 H 95 01/07/22 05:49 101 H 94 01/07/22 05:46 99 H 95 01/07/22 05:45 100 H 128/58 L 01/07/22 05:43 103 H 93 01/07/22 05:41 94 H 95 01/07/22 05:38 101 H 94 01/07/22 05:36 96 H 95 01/07/22 05:32 104 H 94 01/07/22 05:31 98 H 95 01/07/22 05:29 103 H 129/61 01/07/22 05:26 106 H 95 01/07/22 05:21 107 H 96 01/07/22 05:16 108 H 96 01/07/22 05:15 97 H 130/63 01/07/22 05:11 93 H 95 01/07/22 05:06 95 H 95 01/07/22 05:01 92 H 95 01/07/22 04:59 93 H 124/61 01/07/22 04:56 89 95 01/07/22 04:51 90 95 01/07/22 04:46 93 H 96 01/07/22 04:44 101 H 144/81 H 94 01/07/22 04:41 99 H 94 01/07/22 04:38 99 H 94 01/07/22 04:36 101 H 95 01/07/22 04:31 100 H 95 01/07/22 04:29 106 H 144/85 H 94 01/07/22 04:26 100 H 94 01/07/22 04:23 98 H 94 01/07/22 04:21 101 H 95 01/07/22 04:18 105 H 94 01/07/22 04:16 100 H 95 01/07/22 04:14 107 H 152/78 H 01/07/22 04:12 103 H 94 01/07/22 04:11 102 H 95 01/07/22 04:06 92 H 95 01/07/22 04:01 98 H 18 94 01/07/22 04:00 96 H 94 01/07/22 03:58 99 H 126/57 L 01/07/22 03:56 94 H 94 01/07/22 03:55 94 H 94 01/07/22 03:51 95 H 94 01/07/22 03:46 95 H 94 01/07/22 03:44 101 H 132/58 L 01/07/22 03:42 92 H 94 01/07/22 03:41 92 H 94 01/07/22 03:36 91 H 93 01/07/22 03:31 101 H 93 01/07/22 03:29 36.6 C 102 H 18 94 01/07/22 03:28 122 H 122/58 L 01/07/22 03:26 103 H 93 01/07/22 03:23 97 H 94 01/07/22 03:21 92 H 93 01/07/22 03:16 90 93 01/07/22 03:14 90 123/58 L 01/07/22 03:11 93 H 93 01/07/22 03:06 87 93 01/07/22 03:01 89 94 01/07/22 02:59 89 120/56 L 01/07/22 02:56 92 H 94 01/07/22 02:51 88 94 01/07/22 02:50 91 H 94 01/07/22 02:46 90 94 01/07/22 02:45 89 117/55 L 01/07/22 02:44 92 H 94 01/07/22 02:41 93 H 95 01/07/22 02:38 96 H 94 01/07/22 02:36 92 H 95 01/07/22 02:32 92 H 94 01/07/22 02:31 88 95 01/07/22 02:29 96 H 122/59 L 01/07/22 02:27 91 H 94 01/07/22 02:26 91 H 95 01/07/22 02:21 107 H 97 01/07/22 02:16 103 H 97 01/07/22 02:14 110 H 143/87 H 01/07/22 02:11 108 H 97 01/07/22 02:06 108 H 96 01/07/22 02:01 37.0 C 113 H 16 96 01/07/22 02:00 123 H 137/78 01/07/22 01:56 88 94 01/07/22 01:54 86 94 01/07/22 01:51 87 95 01/07/22 01:48 88 94 01/07/22 01:46 90 95 01/07/22 01:45 91 H 125/59 L 01/07/22 01:41 88 95 01/07/22 01:36 82 94 01/07/22 01:31 98 H 95 01/07/22 01:30 94 H 141/79 H 01/07/22 01:27 91 H 94 01/07/22 01:26 90 95 01/07/22 01:21 82 95 01/07/22 01:20 89 94 01/07/22 01:16 83 95 01/07/22 01:14 93 H 139/82 94 01/07/22 01:11 90 95 01/07/22 01:09 89 94 01/07/22 01:06 94 H 94 01/07/22 01:04 96 H 94 01/07/22 01:01 96 H 94 01/07/22 00:59 93 H 139/77 01/07/22 00:58 95 H 94 01/07/22 00:56 88 95 01/07/22 00:53 95 H 94 01/07/22 00:51 93 H 95 01/07/22 00:46 102 H 95 01/07/22 00:44 98 H 157/81 H 01/07/22 00:41 104 H 95 01/07/22 00:39 101 H 93 01/07/22 00:36 105 H 95 01/07/22 00:32 37.3 C 16 01/07/22 00:31 94 H 96 01/07/22 00:30 91 H 144/83 H 01/07/22 00:29 94 H 93 01/07/22 00:26 86 94 01/07/22 00:21 89 94 01/07/22 00:20 88 94 01/07/22 00:16 86 94 01/07/22 00:14 91 H 141/82 H 94 01/07/22 00:11 82 94 01/07/22 00:06 88 94 01/07/22 00:01 88 94 01/06/22 23:59 91 H 139/84 01/06/22 23:56 89 94 01/06/22 23:51 80 95 01/06/22 23:46 84 95 01/06/22 23:45 91 H 140/86 93 01/06/22 23:41 85 95 01/06/22 23:39 86 94 01/06/22 23:36 94 H 96 01/06/22 23:33 18 01/06/22 23:32 88 94 01/06/22 23:31 84 95 01/06/22 23:28 85 124/64 01/06/22 23:26 84 94 01/06/22 23:21 81 96 01/06/22 23:16 79 95 01/06/22 23:14 79 128/65 01/06/22 23:11 82 95 01/06/22 23:10 85 94 01/06/22 23:06 84 95 01/06/22 23:01 75 95 01/06/22 22:59 77 126/58 L 01/06/22 22:56 81 97 01/06/22 22:51 79 96 01/06/22 22:50 83 93 01/06/22 22:46 82 96 01/06/22 22:43 79 123/64 01/06/22 22:41 77 97 01/06/22 22:39 84 94 01/06/22 22:36 83 95 01/06/22 22:31 85 98 01/06/22 22:30 82 119/60 01/06/22 22:26 82 97 01/06/22 22:21 86 97 01/06/22 22:20 37.0 C 18 01/06/22 22:16 84 97 01/06/22 22:15 89 137/79 94 01/06/22 22:11 99 H 98 01/06/22 22:06 96 H 98 01/06/22 22:01 88 96 01/06/22 21:56 80 97 01/06/22 21:51 80 96 01/06/22 21:46 84 97 01/06/22 21:44 81 116/59 L 01/06/22 21:41 81 97 01/06/22 21:36 95 H 97 01/06/22 21:31 74 97 01/06/22 21:30 90 120/72 01/06/22 21:26 84 97 01/06/22 21:21 77 97 01/06/22 21:16 83 98 01/06/22 21:15 78 120/59 L 01/06/22 21:11 82 98 01/06/22 21:06 79 98 01/06/22 21:01 75 98 01/06/22 21:00 81 126/58 L 01/06/22 20:56 79 98 01/06/22 20:53 36.7 C 01/06/22 20:51 82 97 01/06/22 20:46 78 97 01/06/22 20:45 96 H 110/55 L 01/06/22 20:41 84 96 01/06/22 20:36 81 95 01/06/22 20:35 83 93 01/06/22 20:31 82 95 01/06/22 20:29 85 105/52 L 01/06/22 20:26 71 95 01/06/22 20:24 82 93 01/06/22 20:21 97 H 96 01/06/22 20:16 117 H 97 01/06/22 20:13 117 H 138/60 01/06/22 20:11 113 H 146/76 H 97 01/06/22 20:09 110 H 144/77 H 01/06/22 20:07 110 H 142/87 H 01/06/22 20:06 121 H 98 01/06/22 20:01 102 H 98 01/06/22 19:56 86 98 01/06/22 19:51 91 H 96 01/06/22 19:37 90 183/103 H 01/06/22 19:14 36.7 C 18 01/06/22 19:05 86 167/93 H 01/06/22 18:38 72 130/69 01/06/22 17:56 36.7 C 01/06/22 16:37 73 134/62 01/06/22 15:37 75 134/79 01/06/22 15:00 36.7 C 01/06/22 14:38 71 144/79 H 01/06/22 13:30 90 164/79 H 01/06/22 13:17 94 H 158/74 H 01/06/22 13:15 101 H 176/114 H 01/06/22 13:00 36.8 C 82 173/105 H 01/06/22 12:45 107 H 154/105 H 01/06/22 12:30 92 H 139/76 01/06/22 12:00 36.8 C 92 H 158/77 H 01/06/22 11:45 100 H 143/67 H 01/06/22 11:30 90 150/61 H 01/06/22 11:15 91 H 155/71 H 01/06/22 11:00 102 H 154/76 H Pain Intensity Abdomen: Pain Intensity: 4 Transfer of Care Handoff Completed per policy Notes Mental Status: alert / awake / arousable and participated in evaluation Patient Amnestic to Procedure: No Nausea / Vomiting: adequately controlled Pain: adequately controlled Airway Patency, RR, SpO2: stable & adequate BP & HR: stable & adequate Hydration State: stable & adequate Neuraxial Anesthesia: was administered and sensory block is resolving Anesthetic Complications: no major complications apparent and Pt Satisfied with anesthetic care
--- NOTE | 2022-01-07 10:47 | Anesthesia Procedure Note ---
Date of Service January 07, 2022 Anesthesia Post Epidural Note Vital Signs Vital Signs: Temp Pulse Resp BP Pulse Ox 37.5 C 101 H 20 154/85 H 97 01/07/22 10:16 01/07/22 10:44 01/07/22 10:16 01/07/22 10:42 01/07/22 10:44 Pain Intensity Abdomen: Pain Intensity: 4 Notes Mental Status: alert / awake / arousable and participated in evaluation Patient Amnestic to Procedure: No Nausea / Vomiting: adequately controlled Pain: adequately controlled Airway Patency, RR, SpO2: stable & adequate BP & HR: stable & adequate Hydration State: stable & adequate Neuraxial Anesthesia: was administered and sensory block is resolving Anesthetic Complications: no major complications apparent and Pt Satisfied with anesthetic care Epidural: Removed without complications and With tip intact
[2022-01-07] MEDS: OXYTOCIN 20 UNITS in LACTATED RINGER'S 1,000 ML IV SCH ×2 (10:50→19:02)
[2022-01-07] MEDS: SIMETHICONE 80 MG CHEW PO SCH ×3 (12:57→21:16)
--- NOTE | 2022-01-07 14:35 | Operative Report (OR) ---
DATE OF SERVICE: 01/07/2022. PROCEDURE: Primary low transverse section. SURGEON: Daniel Barker MD SENIOR INTERIOR DESIGNER: Marian Foy MD PREOPERATIVE DIAGNOSES: 1. Chronic hypertension affecting . 2. Induction of labor for chronic hypertension. 3. Failure to progress despite adequate contractions. 4. Insulin-dependent gestational diabetes. POSTOPERATIVE DIAGNOSES: 1. Chronic hypertension affecting . 2. Induction of labor for chronic hypertension. 3. Failure to progress despite adequate contractions. 4. Insulin-dependent gestational diabetes. 5. Status post procedure. ESTIMATED BLOOD LOSS: 700 mL. DRAINS: Cruz catheter. FLUIDS: Continuous lactated Ringer. URINE OUTPUT: Per Cruz catheter. COMPLICATIONS: None. FINDINGS: Noted to be a viable with weight and Apgars pending. INDICATIONS: Chetna is a 26-year-old G1, P0, admitted at 38 weeks 2 days gestational age for induct ion of labor secondary to chronic hypertension. The patient had a Cruz balloon placed and was start ed on oxytocin per regular protocol. Cruz later came out and the patient underwent artificial ruptu re of membranes for clear fluid. The patient later received an epidural for anesthesia. At the time the Cruz balloon came out, she was found to be 3 cm dilated, 50% effaced, negative 3 station. She was continued on oxytocin and progressed to 4 cm dilated, 70% effaced, negative 1-2 station. The pat ient had no progression of labor further for greater than 10 hours despite adequate contractions on t ocometer and the patient was offered a section versus continued labor and the patient opted for the primary section. Consents were reviewed and signed. DESCRIPTION OF PROCEDURE: The patient was taken to the operating room after consents were assured. Upon presentation, she was properly identified. The patient's epidural was bolused for adequate anes thesia levels. The patient was then prepped and draped in normal sterile fashion. Preprocedural nathanael eout was performed. A low Pfannenstiel incision was then made with a knife. This was carried down t o underlying fascia with the Bovie. The fascia was then nicked at the midline with a knife. The fas micheal was then elevated off the underlying rectus muscles using blunt dissection. The inferior aspect of the fascia was grasped with Kochers x2, elevated off the underlying rectus muscles using blunt dis section. The midline was then entered bluntly, placed on stretch to provide adequate room for delive ry. An Mega retractor was then placed to provide better visualization. A bladder flap was created . A low transverse uterine incision was then made with a knife. This was extended bluntly. The edouard d of was noted to be in cephalic position and was delivered through the hysterotomy. Body an d shoulders quickly followed. was noted to be vigorous soon after delivery. Cord was double clamped and cut. taken over to the awaiting nursery staff. Cord blood was obtained. Atten tion was then turned to delivery of the placenta, which was delivered intact, 3-vessel cord, gentle c ord traction and uterine massage. The uterus was then exteriorized and several passes were made to r emove any remaining membranes with a dry lap. The uterus was wrapped in a wet lap and the hysterotom y was reapproximated with 0 Vicryl continuous running locked suture. There were noted to be several areas of bleeding and [id number] stitches were used and an imbricating stitch layer was then use d to complete the approximation with 0 Vicryl. The posterior cul-de-sac was cleaned of clots and sammy ris. Uterus was returned to maternal abdomen and the hysterotomy was reinspected. There was noted t o be some light oozing around where the bladder flap was taken down and Binh was placed over the oo zing area. There was noted to be still some slight bleeding after 1 minute and a ytpivo-[id number] sti tch was used to achieve final hemostasis. The Mega retractor was removed. The subcutaneous fascial and muscle layers were all inspected and noted to be hemostatic. The fascia was reapproximated with 0 Vicryl continuous running locked stitch. The subcutaneous layers were vignesh pproximated with 2-0 Vicryl in continuous running stitch in 2 layers. The skin was reapproximated wi th 3-0 Vicryl in a subcuticular stitch. Dermabond was placed on top. Needle, sponge, and instrument counts were correct x2 at the completion of the case. Both mother and were stable in the im mediate post-delivery period. Job ID: [id number]
[2022-01-07] MEDS: NYSTATIN POWDER 15GM BTL EXT SCH ×2 (16:12→21:54)
[2022-01-07] MEDS: DOCUSATE SODIUM 100 MG CAP PO SCH (21:16)
[2022-01-07] MEDS ORDERED: LACTATED RINGER'S 500 ML IV ONE (22:25)
[2022-01-07 22:57] LABS: Hemoglobin 9.1 g/dL (12.0-16.0); Mean Corpuscular Volume 83.1 fL (80-100); Mean Platelet Volume 9.2 fL (7.4-10.4); Platelet Count 221 K/uL (130-400); RDW Coefficient of Variation 14.8 % (11.5-14.5); Red Blood Count 3.25 M/uL (4.2-5.4)
[2022-01-07 22:58] LABS: Mean Corpuscular Hgb Conc 33.7 g/dL (32-36)
[2022-01-07 23:31] LABS: Albumin Level 2.5 gm/dl (3.4-5.0); BUN Creatinine Ratio 15.5 (10-20); Bilirubin,Total 0.9 mg/dl (0.2-1.0); Calcium 7.9 mg/dl (8.5-10.1); Creatinine Clr Calc Pharmacy 215.9 ml/min; Est GFR (African American) 146.4 ml/min; Est GFR (Non-African American) 126.3 ml/min; Globulin 2.5 gm/dl (2.5-4.0); Potassium 3.7 mmol/L (3.5-5.1)
[2022-01-07] MEDS: MoRPHine SULFATE 2 MG/ML CARP IV PRN (23:34)
[2022-01-08] MEDS: NIFEdipine EXTENDED REL 30 MG TABCR PO SCH ×2 (00:35→20:29)
[2022-01-08] MEDS: MoRPHine SULFATE 2 MG/ML CARP IV PRN (01:46)
[2022-01-08] MEDS ORDERED: diphenhydrAMINE 50 MG/ML VIAL IV PRN (02:30)
[2022-01-08] MEDS ORDERED: diphenhydrAMINE Capsule 25 MG CAP PO PRN (02:30)
[2022-01-08] MEDS ORDERED: KETOROLAC 30 MG/ML VIAL IV PRN (02:30)
[2022-01-08] MEDS ORDERED: PROMETHAZINE HCL 25 MG in SODIUM CHLORIDE 0.9% 50 ML IV PRN (02:30)
[2022-01-08] MEDS: oxyCODONE/ACETAMINOPHEN 5mg/325mg TAB PO PRN ×4 (04:53→23:04)
[2022-01-08] MEDS: IBUPROFEN 600 MG TAB PO PRN ×4 (04:55→23:05)
--- NOTE | 2022-01-08 05:59 | Obstetrical Progress Note ---
Date of Service <Destini Galicia DO - Last Filed: 01/08/22 06:51> January 08, 2022 Assessment & Plan <Destini Galicia DO - Last Filed: 01/08/22 06:51> (1) Encounter for care and examination after delivery: 26 yo post op day1 from c/s [facility] cHTN, GDM, obesity, doing well. -Continue routine post care. -vital signs reviewed and WNL (Tmax 36.6) -Blood Type A+, GBS-, Rubella nonimmune -Encourage ambulation, monitor and control pain with Motrin, tylenol PRN, resume regular diet, monitor lochia -encourage bottle feeding -hemoglobin 9.1 Day #:: 1 <Marian Foy MD - Last Filed: 01/08/22 07:35> (1) Encounter for care and examination after delivery: Subjective <Destini Galicia DO - Last Filed: 01/08/22 06:51> Ambulation: ambulating normally Voiding: voiding difficulty Passing Gas:: No Diet Tolerance:: regular diet Lochia:: Small Feeding Type:: bottle feeding Current Pain Level(1-10): 4 Review of Systems Denies fever, chills, sweats Denies shortness of breath, difficulty breathing, chest pain, palpitations, chest pressure. Denies breast pain. Denies dysuria. Denies headache or changes in vision. Physical Exam <Destini Galicia DO - Last Filed: 01/08/22 06:51> General: Alert, oriented. No acute distress. Cardiac: Regular rate and rhythm, no murmurs/rubs/gallops. Respiratory: Clear to auscultation bilaterally a/p, no wheezes/rales/rhonchi. No increased work of breathing. Symmetrical chest rise. No respiratory distress. Abdomen: Soft, nontender, nondistended. Bowel sounds present. Uterus: Uterine fundus firm, palpable 1 cm below umbilicus. Surgical scar clean and healing well. Lower Extremities: No lower extremity edema or swelling. No deep calf pain. Jaime's negative bilaterally. Results & Data ([facility]) <Destini Galicia DO - Last Filed: 01/08/22 06:51> Vital Signs (Past 12 Hours) Vital Signs Temp Pulse Resp BP Pulse Ox 01/08/22 04:00 36.6 C 107 H 16 131/81 95 01/08/22 01:58 16 97 01/08/22 01:00 18 98 01/08/22 00:00 36.6 C 98 H 16 158/98 H 98 01/07/22 23:30 18 97 01/07/22 21:00 20 96 01/07/22 20:00 20 97 01/07/22 19:50 36.9 C 101 H 20 138/89 97 01/07/22 19:00 20 97 01/07/22 18:00 20 97 <Marian Foy MD - Last Filed: 01/08/22 07:35> Co-Signing Physician Notes Resident Physician Supervision Note: I interviewed and examined the patient. Discussed with Dr. Galicia and agree with findings and plan as documented in the note. Any exceptions or clarifications are listed here: [ ] Documented By: Marian Foy MD, FACOG Resident Activity Tracking <Destini Galicia DO - Last Filed: 01/08/22 06:51> Resident Involvement: Resident Care Provided Care Provided: Adult Hospital Medicine and OB Delivery
[2022-01-08 06:45] LABS: Hematocrit (blood only) 25.4 % (37-47); Hemoglobin 8.4 g/dL (12.0-16.0); Mean Corpuscular Hemoglobin 27.5 pg (25-34); Mean Corpuscular Hgb Conc 33.1 g/dL (32-36); Mean Platelet Volume 9.1 fL (7.4-10.4); Platelet Count 222 K/uL (130-400); RDW Coefficient of Variation 15.1 % (11.5-14.5); RDW Standard Deviation 46.3 fL (36.4-46.3); Red Blood Count 3.06 M/uL (4.2-5.4); White Blood Count 14.22 K/uL (4.8-10.8)
[2022-01-08 07:17] LABS: Basophils # (auto) 0.03 K/uL (0-0.2); Basophils % (auto) 0.2 %; Eosinophils # (auto) 0.25 K/uL (0-0.5); Eosinophils % (auto) 1.8 %; Immature Granulocytes # (auto) 0.06 K/uL (0.00-0.02); Immature Granulocytes % (auto) 0.4 %; Lymphocytes # (auto) 1.82 K/uL (1.2-3.4); Lymphocytes % (auto) 12.8 %; Monocytes # (auto) 1.36 K/uL (0.11-0.59); Monocytes % (auto) 9.6 %; Neutrophils % (auto) 75.2 %; RBC Morphology Unremarkable
[2022-01-08] MEDS: DOCUSATE SODIUM 100 MG CAP PO SCH ×2 (08:44→20:30)
[2022-01-08] MEDS: PRENATAL VITAMIN 1 TAB PO SCH (08:44)
[2022-01-08] MEDS: FERROUS SULFATE 325 MG TAB PO SCH (08:44)
[2022-01-08] MEDS: SIMETHICONE 80 MG CHEW PO SCH ×4 (08:45→20:30)
[2022-01-08] MEDS ORDERED: bisacodyL 5 MG TABEC PO SCH (20:00)
[2022-01-08] MEDS: NYSTATIN POWDER 15GM BTL EXT SCH (20:28)
[2022-01-09] MEDS: IBUPROFEN 600 MG TAB PO PRN (04:22)
[2022-01-09] MEDS: oxyCODONE/ACETAMINOPHEN 5mg/325mg TAB PO PRN (04:22)
--- NOTE | 2022-01-09 06:03 | Obstetrical Progress Note ---
Date of Service <Destini GraysonDO - Last Filed: 01/09/22 07:07> January 09, 2022 Assessment & Plan <Destiniceleste Galicia DO - Last Filed: 01/09/22 07:07> (1) Encounter for care and examination after delivery: 26 yo post op day2 from c/s [facility] cHTN, GDM, obesity, doing well. -Continue routine post care. -vital signs reviewed and WNL (Tmax 36.9) -Blood Type A+, GBS-, Rubella nonimmune -Encourage ambulation, monitor and control pain with Motrin, tylenol PRN, resume regular diet, monitor lochia -encourage bottle feeding -hemoglobin 9.1 Day #:: 2 <Gena Luna MD - Last Filed: 01/09/22 07:48> (1) Encounter for care and examination after delivery: Subjective <Destini GraysonDO - Last Filed: 01/09/22 07:07> Ambulation: ambulating normally Voiding: no voiding problems Passing Gas:: Yes Diet Tolerance:: regular diet Lochia:: Small Feeding Type:: bottle feeding Current Pain Level(1-10): 3 Review of Systems Denies fever, chills, sweats Denies shortness of breath, difficulty breathing, chest pain, palpitations, chest pressure. Denies breast pain. Denies dysuria. Denies headache or changes in vision. Physical Exam <Destini GraysonDO - Last Filed: 01/09/22 07:07> General: Alert, oriented. No acute distress. Cardiac: Regular rate and rhythm, no murmurs/rubs/gallops. Respiratory: Clear to auscultation bilaterally a/p, no wheezes/rales/rhonchi. No increased work of breathing. Symmetrical chest rise. No respiratory distress. Abdomen: Soft, nontender, nondistended. Bowel sounds present. Uterus: Uterine fundus firm, palpable 1 cm below umbilicus. Surgical scar clean and healing well. Lower Extremities: No lower extremity edema or swelling. No deep calf pain. Jaime's negative bilaterally. Results & Data ([facility]) <Destiniceleste Galicia DO - Last Filed: 01/09/22 07:07> Vital Signs (Past 12 Hours) Vital Signs Temp Pulse Resp BP Pulse Ox 01/08/22 23:00 36.6 C 94 H 16 133/84 98 01/08/22 20:25 36.8 C 99 H 18 131/85 97 <Gena Luna MD - Last Filed: 01/09/22 07:48> Co-Signing Physician Notes Resident Physician Supervision Note: I interviewed and examined the patient. Discussed with Dr. Galicia and agree with findings and plan as documented in the note. Any exceptions or clarifications are listed here: POD2 s/p pLTCS, complicated by cHTN, DM. VSS, exam benign and wnl, incison c/d/i. Denies s/s PET. Desires d/c home today, stable to do so. D/c instructions and pre-eclampsia precautions reviewed Documented By: Gena Luna MD Resident Activity Tracking <Destini Galicia DO - Last Filed: 01/09/22 07:07> Resident Involvement: Resident Care Provided Care Provided: Adult Hospital Medicine and OB Delivery
[2022-01-09 07:47] LABS: Hematocrit (blood only) 28.7 % (37-47); Hemoglobin 9.2 g/dL (12.0-16.0)
[2022-01-09] MEDS: NYSTATIN POWDER 15GM BTL EXT SCH (08:31)
[2022-01-09] MEDS: DOCUSATE SODIUM 100 MG CAP PO SCH (08:32)
[2022-01-09] MEDS: SIMETHICONE 80 MG CHEW PO SCH ×2 (08:32→12:40)
[2022-01-09] MEDS: FERROUS SULFATE 325 MG TAB PO SCH (08:33)
[2022-01-09] MEDS: PRENATAL VITAMIN 1 TAB PO SCH (08:33)
[2022-01-09] MEDS ORDERED: bisacodyL 10 MG SUPP PR PRN (09:16)
== END 2022-01-09 13:05 | disposition home or self-care (01) | DRG 788 ==
LOC: 4S1 07:33 → 4E2 01-07 12:43